=== PATIENT | female | born 1955 | race Caucasian/White ===

== ENCOUNTER 2019-03-14 08:20 | Outpatient (CLI) | payer BC ==
--- NOTE | 2019-03-14 09:24 | MMO ---
Bilateral MAMMO Bilat Screen [facility]. CLINICAL HISTORY: Patient is 64 years old and is seen for screening. The patient has no family history of breast cancer. The patient has no personal history of cancer. VIEWS: The views performed were: bilateral craniocaudal with tomosynthesis and bilateral mediolateral oblique with tomosynthesis. FILMS COMPARED: The present examination has been compared to prior imaging studies performed at [facility] on 12/14/2006, 01/02/2008 and 01/26/2011. MAMMOGRAM FINDINGS: There are scattered fibroglandular densities. There are no suspicious masses, suspicious calcifications, or new areas of architectural distortion. IMPRESSION: THERE IS NO MAMMOGRAPHIC EVIDENCE OF MALIGNANCY. A ROUTINE FOLLOW-UP MAMMOGRAM IN 1 YEAR IS RECOMMENDED. THE RESULTS OF THIS EXAM WERE SENT TO THE PATIENT. ACR BI-RADS Category 1 - Negative MAMMOGRAPHY NOTE: 1. A negative mammogram report should not delay a biopsy if a dominant of clinically suspicious mass is present. 2. Approximately 10% to 15% of breast cancers are not detected by mammography. 3. Adenosis and dense breasts may obscure an underlying neoplasm.
== END 2019-03-14 08:21 | disposition home or self-care (01) ==
LOC: BICMAMMO 08:20
PROVIDERS: ATTEND Family Medicine
DX: Z12.31 Encounter for screening mammogram for malignant neoplasm of breast (principal)
CPT/HCPCS: 77063; 77067

== ENCOUNTER 2019-10-11 07:51 | Outpatient (CLI) | payer MEDICARE ==
--- NOTE | 2019-10-11 09:05 | ULT ---
STANDARD BILATERAL RENAL ULTRASOUND: HISTORY: Chronic kidney disease stage III. COMPARISON: None. FINDINGS: The right kidney measures 10.2 x 4.3 x 4.3 cm and the left kidney measures 9.7 x 4.7 x 3.9 cm. Pre-void urinary bladder volume is 56 mL. There is a possible exophytic mass of the interpolar left kidney, measuring up to 2.3 cm with interna l vascularity. IMPRESSION: Possible 2.3 cm interpolar mass left kidney. This may reflect a mass versus a prominent dromedary hum p. A renal protocol CT or MRI is recommended. CODE T POS: CET
== END 2019-10-11 07:52 | disposition home or self-care (01) ==
LOC: BICULT 07:51
PROVIDERS: ATTEND Internal Medicine Nephrology
DX: N18.3 Chronic kidney disease, stage 3 (moderate) (principal)
CPT/HCPCS: 76770

== ENCOUNTER 2019-11-06 09:27 | Outpatient (CLI) | payer MEDICARE ==
--- NOTE | 2019-11-06 11:21 | RAD ---
PA AND LATERAL VIEWS CHEST: HISTORY: Chronic kidney disease. Cough. FINDINGS: The heart size is normal. The aorta is tortuous. The lungs are expanded without lobar consolidation , pneumothoraces, or pleural effusions. There are degenerative changes in the spine. There are post op changes of right rotator cuff repair. IMPRESSION: No radiographic evidence of acute cardiopulmonary process. POS: OFF
== END 2019-11-06 09:28 | disposition home or self-care (01) ==
LOC: BICRAD 09:27
PROVIDERS: ATTEND Internal Medicine Nephrology
DX: N18.3 Chronic kidney disease, stage 3 (moderate) (principal)
CPT/HCPCS: 71046

== ENCOUNTER 2020-02-05 09:47 | Outpatient (CLI) | payer MEDICARE ==
--- NOTE | 2020-02-05 12:05 | ULT ---
BILATERAL RENAL ULTRASOUND: Date: 02/05/2020 HISTORY: Follow-up of left renal mass. FINDINGS: Real-time imaging of the right and left kidneys were performed. The right kidney measures 10.9 cm in size and shows no mass or obstruction. Once again, on the left side, in the mid pole region, is either a dromedary hump or a mass. It is dif ficult to differentiate, but I do not see that there is a definite interval change since the prior ex am. I would tend to favor this as a dromedary hump. The bladder was empty at the time of this study. IMPRESSION: Stable appearance to prominence in the mid pole region of the left kidney, although I would favor it to be a dromedary hump. I cannot exclude it as a solid mass. It has not definitely changed in size or appearance since the prior exam. Continued follow-up would be recommended. If CT could be performed, this would be preferable. POS: [facility]
== END 2020-02-05 09:48 | disposition home or self-care (01) ==
LOC: BICULT 09:47
PROVIDERS: ATTEND Internal Medicine Nephrology
DX: N28.89 Other specified disorders of kidney and ureter (principal); I12.9 Hypertensive chronic kidney disease with stage 1 through stage 4 chronic kidney disease, or unspecified chronic kidney disease; N18.3 Chronic kidney disease, stage 3 (moderate); R73.02 Impaired glucose tolerance (oral)
CPT/HCPCS: 36415; 76770; 80053; 80061; 81001; 83036; 84443; 85025

== ENCOUNTER 2022-03-23 14:00 | Outpatient (CLI) | payer MEDICARE, OTHER | END 2022-03-23 14:01 | disposition home or self-care (01) | LOC: BICMAMMO 14:00 | PROVIDERS: ATTEND Family Medicine | DX: Z12.31 Encounter for screening mammogram for malignant neoplasm of breast (principal) | CPT/HCPCS: 77063; 77067 ==

== ENCOUNTER 2022-03-23 14:02 | Outpatient (CLI) | payer MEDICARE, OTHER | END 2022-03-23 14:03 | disposition home or self-care (01) | LOC: ULT 14:02 → BICULT 14:03 | PROVIDERS: ATTEND Internal Medicine Nephrology | DX: N18.30 Chronic kidney disease, stage 3 unspecified (principal); N28.89 Other specified disorders of kidney and ureter | CPT/HCPCS: 76770 ==

== ENCOUNTER 2022-11-19 10:35 | Outpatient (CLI) | payer MEDICARE, OTHER | END 2022-11-19 10:36 | disposition home or self-care (01) | LOC: BICULT 10:35 | PROVIDERS: ATTEND Internal Medicine Nephrology | DX: N18.30 Chronic kidney disease, stage 3 unspecified (principal) | CPT/HCPCS: 76770 ==

== ENCOUNTER 2023-05-11 14:21 | Outpatient (CLI) | payer MEDICARE, OTHER | END 2023-05-11 14:22 | disposition home or self-care (01) | LOC: BICMAMMO 14:21 | PROVIDERS: ATTEND Family Medicine | DX: Z12.31 Encounter for screening mammogram for malignant neoplasm of breast (principal) | CPT/HCPCS: 77063; 77067 ==

== ENCOUNTER 2024-02-22 10:12 | Outpatient (CLI) | payer MEDICARE, OTHER ==
[2024-02-22] MEDS ORDERED: Iopamidol 370 76% 100 ML VIAL ONE (11:18)
== END 2024-02-22 10:13 | disposition home or self-care (01) ==
LOC: BICCT 10:12
PROVIDERS: ATTEND Urology
DX: N28.9 Disorder of kidney and ureter, unspecified (principal); N28.89 Other specified disorders of kidney and ureter
CPT/HCPCS: 74170; 82565; Q9967